=== PATIENT | male | born 1935 | race Hispanic/Latino ===

== ENCOUNTER 2017-12-09 08:14 | Outpatient (CLI) | payer MEDICARE, BC ==
[2017-12-09] MEDS ORDERED: Iopamidol 370 76% 100 ML VIAL ONE (09:00)
--- NOTE | 2017-12-09 10:16 | CT ---
CT ABDOMEN AND PELVIS WITH CONTRAST: Date: 12/09/17 HISTORY: Generalized abdominal pain, R10.84. Flatulence and gas. COMPARISON: None. FINDINGS: There are mild atelectatic changes in the lung bases. No pericardial effusion. Prior cholecystectomy. There are no dilated loops of large or small bowel. Large, fat-containing, right-sided direct inguinal hernia. No dilated loops of large or small bowel. There is a hypodense focus in the anterior pole and inferior pole left kidney measuring fluid attenua tion suggesting cyst. Visualized portions of the pancreas are unremarkable. The liver and spleen are unremarkable. Adrenal glands are unremarkable. There is mild dextroscoliosis of the lumbar spine. No abnormal areas of mucosal hyperenhancement. No mesenteric mass. IMPRESSION: 1. No acute inflammatory process of the abdomen or pelvis. 2. Numerous hypodensities of both kidneys, those of which that are greater than 1.0 cm are fluid att enuation suggesting cysts. 3. Large, right-sided, fat-containing direct inguinal hernia. 4. Normal appendix. POS: [facility]
== END 2017-12-09 08:15 | disposition home or self-care (01) ==
LOC: SCSCT 08:14
PROVIDERS: ATTEND Internal Medicine Gastroenterology
DX: K40.90 Unilateral inguinal hernia, without obstruction or gangrene, not specified as recurrent (principal); N28.9 Disorder of kidney and ureter, unspecified; R10.84 Generalized abdominal pain; R14.3 Flatulence
CPT/HCPCS: 74177; 82565

== ENCOUNTER 2018-04-09 11:32 | Outpatient (CLI) | payer MEDICARE, BC ==
--- NOTE | 2018-04-09 11:58 | RAD ---
RIGHT RIBS THREE VIEWS: History: Fall with injury to right chest. FINDINGS: No evidence of right fib fracture identified. Right lung is expanded and clear. IMPRESSION: No evidence of right rib fracture or other lesion. POS: [facility]
== END 2018-04-09 11:33 | disposition home or self-care (01) ==
LOC: SCSRAD 11:32
PROVIDERS: ATTEND Family Medicine
DX: R07.81 Pleurodynia (principal); Z91.81 History of falling

== ENCOUNTER 2018-07-09 07:19 | Outpatient (CLI) | payer MEDICARE, BC ==
--- NOTE | 2018-07-09 14:23 | RAD ---
DOUBLE CONTRAST ESOPHAGRAM: INDICATION: Nausea and vomiting. TECHNIQUE: 10 gm of a thick barium and effervescent crystals were utilized for double contrast esophagram. The total fluoroscopic time was 1.2 minutes. Total exposure was 25.456 uGy*^cm2. FINDINGS: There is a small hiatal hernia. No mucosal abnormality is evident. Esophageal contour and motility appear within normal limits. The 12.5 mm barium tablet passed without difficulty. IMPRESSION: 1. Small hiatal hernia. 2. No reflux demonstrated. 3. No definite mucosal abnormality is evident. The esophageal contour and motility appeared within normal limits. The 12.5 mg tablet passed without difficulty. POS: [facility]
--- NOTE | 2018-07-09 15:18 | NM ---
GASTRIC EMPTYING STUDY: The patient was given 2 mCi of Technetium labeled sulfur colloid with eggs orally for solid phase emp tying study. INDICATION: Nausea with vomiting, unspecified. Question gastroparesis. FINDINGS: One half hour: 37% emptying. One hour: 65% emptying. Two hour: 86% emptying. Three hour: 98% emptying. T1-1/2: 50 minutes. IMPRESSION: Normal gastric emptying. POS: [facility]
== END 2018-07-09 07:20 | disposition home or self-care (01) ==
LOC: NM 07:19
PROVIDERS: ATTEND Internal Medicine Gastroenterology
DX: R11.2 Nausea with vomiting, unspecified (principal); R14.3 Flatulence; K58.9 Irritable bowel syndrome, unspecified; R10.84 Generalized abdominal pain; K44.9 Diaphragmatic hernia without obstruction or gangrene
CPT/HCPCS: 74220; 78264; A9541

== ENCOUNTER 2018-07-30 09:13 | Outpatient (CLI) | payer MEDICARE, BC ==
--- NOTE | 2018-07-30 15:48 | MRI ---
MRI OF THE ABDOMEN WITH AND WITHOUT CONTRAST: INDICATION: Abdominal pain with loss of appetite. CONTRAST: 17 cc of MultiHance. COMPARISON: CT of the abdomen and pelvis with contrast dated 12/09/2017. TECHNIQUE: Multiplanar, multisequence MR images were obtained of the abdomen with and without contrast. Respira tory motion artifact heavily degrades image detail. FINDINGS: No focal hepatic lesion is evident. The gallbladder is surgically absent. There are numerous bilate ral renal cysts. The largest is seen within the inferior pole of the left kidney measuring approxima tely 2.3 cm. No hydronephrosis is demonstrated. There is a 1.5 cm left adrenal adenoma. The common bile duct is normal in caliber measuring 4 mm. The main pancreatic duct at the level of the pancrea tic head measured 2.7 mm, at the level of the pancreatic body 2 mm, and the level of the pancreatic t ail 1.3 mm. No focal pancreatic lesion is identified. No lymphadenopathy is noted. The spleen is n ormal in size. No free fluid is demonstrated. There is thoracolumbar scoliosis. There is multileve l spondylosis. There is a suspected hemangioma within the left aspect of T10. IMPRESSION: 1. No acute abnormality is seen within the abdomen. No suspicious region of enhancement is demonstr ated, particularly within the liver. 2. Bilateral renal cysts. 3. Small left adrenal adenoma. POS: [facility]
== END 2018-07-30 09:14 | disposition home or self-care (01) ==
LOC: SCSMRI 09:13
PROVIDERS: ATTEND Internal Medicine Gastroenterology
DX: R10.84 Generalized abdominal pain (principal); R63.0 Anorexia; N28.1 Cyst of kidney, acquired; D35.02 Benign neoplasm of left adrenal gland
CPT/HCPCS: 74183; 82565

== ENCOUNTER 2018-10-22 14:52 | Outpatient (CLI) | payer MEDICARE, BC ==
--- NOTE | 2018-10-22 15:47 | MRI ---
MRI OF THE BRAIN WITHOUT CONTRAST: COMPARISON: None. HISTORY: Cognitive decline and multiple falls. Confusion. TECHNIQUE: Multiplanar, multisequence, MRI images were obtained of the brain without contrast. FINDINGS: There are scattered foci of high FLAIR signal in the subcortical and periventricular white matter, li anu secondary to small-vessel ischemic disease. No restricted diffusion is seen to suggest an acute infarction. There is no evidence of hydrocephalus, intracranial hemorrhage, or extraaxial fluid collection. The expected flow voids are present. The corpus callosum, pituitary, and craniocervical junction are unr emarkable. The calvarium and overlying soft tissues are unremarkable. The visualized paranasal sinuses and mast oid air cells are well aerated. IMPRESSION: Small-vessel ischemic disease without acute intracranial abnormality. POS: [facility]
== END 2018-10-22 14:53 | disposition home or self-care (01) ==
LOC: SCSMRI 14:52
PROVIDERS: ATTEND Family Medicine
DX: R41.89 Other symptoms and signs involving cognitive functions and awareness (principal); R41.0 Disorientation, unspecified; R29.6 Repeated falls; G93.89 Other specified disorders of brain
CPT/HCPCS: 70551